=== PATIENT | female | born 1985 | race Two or more races ===

== ENCOUNTER 2025-02-18 11:53 | Inpatient (IN) ==
[2025-02-18] MEDS ORDERED: fentaNYL citrate PF 100 MCG/2 ML VIAL ONE (12:19)
[2025-02-18] MEDS ORDERED: PHENYLEPHRINE HCL 25 MG/250 ML NSS IV ONE (12:19)
[2025-02-18] MEDS ORDERED: MoRPHine SULFATE PF 1 MG/ML 10 ML AMP/VIAL ONE (12:19)
[2025-02-18] MEDS ORDERED: OXYTOCIN 10 UNITS/ML VIAL ONE (12:19)
[2025-02-18] MEDS ORDERED: ONDANSETRON INJ 2 MG/ML 2 ML VIAL ONE (12:19)
[2025-02-18] MEDS ORDERED: DEXAMETHASONE SOD INJ 4 MG/ML VIAL ONE (12:19)
[2025-02-18] MEDS ORDERED: LACTATED RINGER'S 1,000 ML IV PRN (13:04)
[2025-02-18] MEDS ORDERED: LIDOCAINE 1% LOCAL 20 ML VIAL INFIL PRN (13:04)
[2025-02-18] MEDS ORDERED: OXYTOCIN 30 UNITS/NSS 30 UNITS/500 ML BAG IV PRN (13:04)
--- NOTE | 2025-02-18 13:18 | History & Physical Report ---
Date of Service February 18, 2025 Assessment & Plan (1) Breech presentation: Present on Admission?: Yes (2) Delayed delivery after SROM (spontaneous rupture of membranes): Present on Admission?: Yes (3) AMA (advanced maternal age) multigravida 35+: Present on Admission?: Yes Plan Admit to L and D NPO/IV Fluids labs Ancef 2 gm IV, Zithromax 500 mg IV pre op ordered Glass to gravity Bicitra anesthesia and OR informed Consent obtained. Discuss the risks and benefits of the section Admission and Anticipated Discharge Date Admission Date: February 18, 2025 History of Present Illness Chief Complaint: pt 39 yr old IUP at 38 weeks 2 days came in from the office c/o ROM since last night. pt denies regular uterine contractions, vaginal bleeding etc. Reports good movement. prior C/S X 1, malpresentation. Primary Care Provider: Erika Cuevas DO Pt 39 yr old IUP at 38 weeks 2 days came in from the office c/o ROM since last night. pt denies regular uterine contractions, vaginal bleeding etc. Reports good movement. prior C/S X 1, malpresentation. Pt here for repeat low transverse section. Allergies Allergy/AdvReac Type Severity Reaction Status Date / Time benzonatate Allergy Unknown Rash Verified 02/18/25 13:15 Home Medications Medication Instructions Recorded Confirmed Type albuterol sulfate 0.63 mg/3 mL 0.63 mg inhalation QID PRN 07/01/23 12/28/24 History solution for nebulization fluticasone fur. 200 mcg-umeclid 1 inh inhalation DAILY 07/01/23 12/28/24 History 62.5 mcg-vilant 25 mcg inhalat.powder (Trelegy Ellipta) sertraline 25 mg tablet 150 mg PO DAILY 08/06/24 12/28/24 History albuterol sulfate 90 mcg/actuation 2 puff inhalation Q6H PRN 11/25/24 12/28/24 Rx aerosol inhaler shortness of breath or wheezing #8.5 grams azelastine 137 mcg (0.1 %) nasal 2 spray intranasal DAILY 90 days 11/25/24 12/28/24 Rx spray #3 ea dupilumab 300 mg/2 mL subcutaneous 300 mg (2 mL) subcut .COMPLEX #12 01/04/25 Rx pen injector (Dupixent) mL Past Med/Surg History Problem List (Updated 02/18/25 @ 13:15 by Arleen Shah MD) AMA (advanced maternal age) multigravida 35+ Delayed delivery after SROM (spontaneous rupture of membranes) Breech presentation Chronic frontal sinusitis Nasal polyps Social History Smoking Status: Never smoker Hx Alcohol Use: No Hx Substance Use: No Preferred Language: Sami Communication Ability: Effective Submarine Diver Required: No Beliefs That Will Affect Care: None marital status: Current Living Situation: Family Other Information That Helps Us Care for You: No Feels Safe at Home: Yes Safety Concerns: Feels Safe At This Time Review of Systems Review of Systems: All systems reviewed & are unremarkable except as noted in HPI & below Constitutional: as per Subjective / HPI Respiratory: as per Subjective / HPI Cardiovascular: as per Subjective / HPI Genitourinary: as per Subjective / HPI Physical Exam Constitutional: WD/WN, vitals as above Respiratory: normal respiratory effort, lungs clear to auscultation Cardiovascular: RRR, no murmur, no edema Gastrointestinal (Abdomen): normal bowel sounds, soft, nontender, no hepatosplenomegaly Skin: no rashes, warm and dry Psychiatric: A+Ox3, euthymic affect Genitourinary: no vaginal lesions, no adnexal mass Speculum/Bimanual Exam: + nulliparous OB Exam Abdomen: + heart tones (140s, Good variabilty, positive accelerations ) and + breech Manual OB Exam: + amniotic fluid clear Results & Data Results & Data Vital Signs (Past 12 Hours) Vital Signs Pulse Resp BP Pulse Ox 02/18/25 13:05 76 100 02/18/25 13:00 80 100 02/18/25 12:55 75 100 02/18/25 12:50 100 02/18/25 12:50 73 02/18/25 12:50 77 118/77 02/18/25 12:49 18 02/18/25 12:45 81 99 02/18/25 12:43 201 H 83 L 02/18/25 12:04 194 H 81 L Code Status & VTE Plan VTE Prophylaxis Plan VTE Prophylaxis will be ordered: No
[2025-02-18] MEDS ORDERED: NALOXONE HCL 0.4 MG/1 ML VIAL/CARP IV PRN (13:27)
[2025-02-18] MEDS ORDERED: SODIUM CHLORIDE 0.9% PF INJ 10 ML VIAL EPI PRN (13:27)
[2025-02-18] MEDS ORDERED: fentaNYL citrate PF 100 MCG/2 ML VIAL EPI STA (13:27)
[2025-02-18] MEDS ORDERED: ePHEDrine sulfate 50 MG/ML AMP IV PRN ×2 (13:27)
[2025-02-18] MEDS ORDERED: BUPIVACAINE 0.25% PF 30 ML VIAL EPI PRN (13:27)
[2025-02-18] MEDS ORDERED: LIDOCAINE 2% MPF LOCAL 5 ML VIAL EPI PRN (13:27)
[2025-02-18] MEDS ORDERED: BUPIVACAINE 0.25% PF 30 ML VIAL EPI STA (13:27)
[2025-02-18] MEDS ORDERED: fentANYL 2 MCG/ML BUPIVacaine 0.125%-NSS 100ML BAG EPI PRN (13:27)
[2025-02-18] MEDS ORDERED: NALBUPHINE HCL INJ 10 MG/ML AMP IV PRN (13:27)
[2025-02-18] MEDS ORDERED: ONDANSETRON INJ 2 MG/ML 2 ML VIAL IV PRN ×2 (13:27→15:04)
[2025-02-18] MEDS ORDERED: NALOXONE HCL 1 MG in SODIUM CHLORIDE 0.9% 1,000 ML IV PRN (13:27)
[2025-02-18] MEDS ORDERED: ROPIVACAINE 0.5% PF 5 MG/ML 20 ML VIAL EPI PRN (13:27)
[2025-02-18] MEDS ORDERED: fentaNYL citrate PF 100 MCG/2 ML VIAL EPI PRN (13:27)
[2025-02-18] MEDS ORDERED: LIDOCAINE 2%/EPINEPHRINE 1:200,000 20 ML PF EPI STA (13:27)
[2025-02-18] MEDS ORDERED: SODIUM CHLORIDE 0.9% PF INJ 10 ML VIAL EPI STA (13:27)
[2025-02-18] MEDS ORDERED: PROMETHAZINE 6.25 MG/50.25 ML BAG IV PRN (13:27)
[2025-02-18] MEDS ORDERED: diphenhydrAMINE 50 MG/ML VIAL IV PRN ×2 (13:27→15:04)
[2025-02-18] MEDS ORDERED: ATROPINE SULFATE 0.1 MG/ML 10ML SYR IV PRN (13:27)
--- NOTE | 2025-02-18 13:27 | Anesthesiology Consultation ---
Date of Service February 18, 2025 Assessment & Plan ASA ASA2 Proposed Anesthesia Anesthesia Type: Spinal Risk / Benefits Reviewed With: PT / POA / Parent / Guardian, Accepts Plan and Informed Consent Obtained History Surgery Operation Date: 02/18/25 12:45 Proposed Procedures p Section in LD - Arleen Shah MD Height/Weight Height: 5 ft 11 in Weight: 97.522 kg Allergies Allergy/AdvReac Type Severity Reaction Status Date / Time benzonatate Allergy Unknown Rash Verified 02/18/25 13:15 Medications Home Medications Medication Instructions Recorded Confirmed Last Taken albuterol sulfate 0.63 mg/3 mL 0.63 mg inhalation QID PRN 07/01/23 12/28/24 Unknown solution for nebulization fluticasone fur. 200 mcg-umeclid 1 inh inhalation DAILY 07/01/23 12/28/24 Unknown 62.5 mcg-vilant 25 mcg inhalat.powder (Trelegy Ellipta) sertraline 25 mg tablet 150 mg PO DAILY 08/06/24 12/28/24 Unknown albuterol sulfate 90 mcg/actuation 2 puff inhalation Q6H PRN 11/25/24 12/28/24 Unknown aerosol inhaler shortness of breath or wheezing #8.5 grams azelastine 137 mcg (0.1 %) nasal 2 spray intranasal DAILY 90 days 11/25/24 12/28/24 Unknown spray #3 ea dupilumab 300 mg/2 mL subcutaneous 300 mg (2 mL) subcut .COMPLEX #12 01/04/25 Unknown pen injector (Dupixent) mL Exercise / Class Metabolic Activity II 4-5 Yardwork/Stairs/Walk up hill Past Anesthesia History No Hx of Anesthesia Complications and No Family Hx of Anesthesia Complications History of PONV No Hx of PONV and No Hx of Motion Sickness Social History Smoking Status: Never smoker Hx Alcohol Use: No Hx Substance Use: No Review of Systems denies fever/cough/ colds/ chest pain/ SOB/ ALEXANDRA denies ALEXANDRA Physical Exam Vital Signs Last Vital Signs Pulse 80 02/18/25 13:25 Resp 18 02/18/25 12:49 BP 118/77 02/18/25 12:50 Pulse Ox 100 02/18/25 13:25 ENMT Mouth: no TMJ abnormality and no dentition abnormality Thyromental Distance: > or= 3.5 Finger Breadths Mallampati Class: II Neck neck extension not limited Respiratory normal respiratory effort; no respiratory distress Auscultation: lungs clear to auscultation bilaterally Cardiovascular Rate/Rhythm: regular rate and regular rhythm Neurologic moves all extremities Psychiatric Orientation: alert and oriented x 3
[2025-02-18 13:41] LABS: Hematocrit (blood only) 33.6 % (37.0-47.0); Hemoglobin 10.8 g/dl (12.0-16.0); Mean Corpuscular Hemoglobin 23.8 pg (25.0-34.0); Mean Corpuscular Hgb Conc 32.1 g/dL (32.0-36.0); Mean Corpuscular Volume 74.2 fL (80.0-100.0); Mean Platelet Volume 11.4 fL (9.4-12.4); Platelet Count 150 K/uL (130-400); RDW Coefficient of Variation 15.5 % (11.5-14.5); RDW Standard Deviation 41.1 fL (36.4-46.3); Red Blood Count 4.53 M/uL (4.20-5.40); White Blood Count 5.65 K/ul (4.8-10.8)
[2025-02-18] MEDS: CITRIC ACID/SODIUM CITRATE 15 ML UDC PO ONE (13:50)
[2025-02-18] MEDS: AZITHROMYCIN 500 MG/255 ML BAG IV ONE (13:50)
[2025-02-18] MEDS: ceFAZolin 2000MG 2,000 MG/15 ML SYR IV ONE (13:51)
[2025-02-18] MEDS ORDERED: CALCIUM CARBONATE 500 MG CHEWABLE TAB PO PRN (15:04)
[2025-02-18] MEDS ORDERED: MAGNESIUM HYDROXIDE SUSP 30 ML UDC PO PRN (15:04)
[2025-02-18] MEDS ORDERED: HYDROmorphone INJ 0.5 MG/0.5 ML SYR IV PRN (15:04)
[2025-02-18] MEDS ORDERED: oxyCODONE HCL IR 5 MG TAB (IMMEDIATE RELEASE) PO PRN (15:04)
[2025-02-18] MEDS ORDERED: HYDROCORTISONE ACETATE 25 MG SUPP PR PRN (15:04)
[2025-02-18] MEDS ORDERED: SENNA 8.6 MG TAB PO PRN (15:04)
[2025-02-18] MEDS ORDERED: DIPHTHER/TETAN/PERTUS Vaccine (Tdap, Adol/Adult) 0.5mL IM ONE (15:04)
[2025-02-18] MEDS ORDERED: PROMETHAZINE 12.5 MG/50.5 ML BAG IV PRN (15:04)
[2025-02-18] MEDS ORDERED: diphenhydrAMINE Capsule 25 MG CAP PO PRN (15:04)
[2025-02-18] MEDS ORDERED: BENZOCAINE 20% SPRY 85 APPLN/85 GM CAN EXT PRN (15:04)
--- NOTE | 2025-02-18 15:09 | Post Operative Brief Note ---
Immediate Post Op Note Date of Surgery February 18, 2025 Pre & Post Diagnosis Operation Date: 02/18/25 12:45 Pre-Op Diagnosis: 1. Rupture of membrane 2. Term 3. Labor 4. Repeat C/S Post-Op Diagnosis: Same as preoperative I identified the patient and participated in the time-out.: Yes Procedure Operation Date: 02/18/25 12:45 Actual Procedures p Section in LD(Bilateral) - Arleen Shah MD Surgeon Arleen Shah MD Master [employer] sudheer alexandre RN for retraction Estimated Blood Loss 621 Findings Consistent with Post-Op Diagnosis (vertex, scar tissue ) Drains Glass Catheter Complications none Disposition Accompanied Patient To Recovery: No Disposition: Recovery Room
--- NOTE | 2025-02-18 15:10 | Operative Report ---
Post Operative Report Pre & Post Diagnosis Operation Date: 02/18/25 12:45 Pre-Op Diagnosis: 1. Rupture of membrane 2. Term 3. Labor 4. Repeat C/S Post-Op Diagnosis: Same as preoperative I identified the patient and participated in the time-out.: Yes Procedure Operation Date: 02/18/25 12:45 Actual Procedures repeat low trasnverse Section Arleen Shah MD Description of Procedure Patient was taken to operating room where a spinal anesthesia was given without difficulty. She was placed in dorsal supine position with a leftward tilt. She was prepared and draped in usual sterile fashion. A flannelsteil skin incision was made and carried through to the underlying layer of fascia with the Bovie. Fascia was incised in the midline and incision was extended laterally with the help of Villanueva scissors. Then the upper aspect of the fascial incision was grasped with 2 Khang clamps elevated the underlying rectus muscles were dissected off sharply with Villanueva scissors. Same thing was done on the lower incision. the peritoneum was entered during dissection of the fascia from muscles. there was no adhesion nor loops of bowels under the fascia. Peritoneal incision was extended superior and inferiorly with good visualization of the bladder. The bladder blade was inserted. Vesicouterine peritoneum was identified, grasped with pickups and entered sharply with Metzenbaum scissors, bladder flap was created digitally and bladder blade was reinserted. Uterus was incised in transverse fashion, incision was extended laterally, membranes were ruptured and minimal clear fluid was obtained. Baby's head was delivered with some difficulty, used vacuum for the delivery of the head, vacuum removed , nuchal cord x1 around the neck. reduced, followed by shoulders and body with minimal traction without faculty. Mouth and nose were suctioned there was dried on the field . The cord was clamped times and cut at 1 minute delay and then the was handed off to the pediatric team. Then the placenta was delivered manually as intact and complete. Uterus was externalized and cleared of all clots and debris's. Uterine incision was repaired with 0 Vicryl in a running locked fashion, second imbricating layer was placed with the same suture in running locked fashion. there were some oozing on the medial superior of the incision, those were repaired with 0 Vicryl in running fashion with multiple sutures. It was hemostatic. Incision was checked to be hemostatic again. Uterus was returned to the abdomen, The parietal peritoneum was reapproximated with 2-0 Vicryl in a running fashion. decision was made not to close the rectus muscles to avoid risk of bleeding. In a running fashion. Subcuticular fat tissue was brought together with 2-0 Vicryl in a running fashion, skin was closed with 3-0 Monocryl on a Ernst needle in a subcuticular cuticular fashion. Dermabond applied and pressure drssing placed. The mom and baby tolerated procedure well. Sponge needle instrument count was correct x3. she was given 2 g of cefazolin before surgery, 500 mg Zithromax IV No complications happened, I performed during whole procedure. Surgeon Arleen Shah MD Abalone Fisherman sudheer alexandre RN for retraction Quantitative Blood Loss (QBL) 621 cc Findings Consistent with Post-Op Diagnosis (vertex, scar tissue ) Specimens none Complications none Disposition Accompanied Patient To Recovery: No Disposition: Recovery Room Description of Procedure see op report I attest to the content of the Intraoperative Record and any orders documented therein. Any exceptions are noted below.
[2025-02-18] MEDS ORDERED: OXYTOCIN 30 UNITS/NSS 30 UNITS/500 ML BAG IV SCH (15:15)
[2025-02-18] MEDS ORDERED: OXYTOCIN 20 UNITS/1002ML LR IV ONE (15:26)
--- OUTSIDE RECORDS SUMMARY | 2025-02-18 15:34 | External Medical Summary | Summary of Care ---
Author Name Unknown Organization [facility] Address [address] [place] [address] Phone [phone] Care Team Providers Care Plumber Assistant Name Role Phone Erika Cuevas DO Primary Care Provider [phone] Reason for Visit * Reason Comments Return Visit Encounter Details Date Type Department Care Team (Late st Contact Info) Description 02/07/2025 1:30 PM EDT Office Visit Gynecology/Obstetric s [facility] [address] [place] [address] Mariah Del Cid CRNP [address] [place] [address] Multigravida of advanced maternal age in third trimester*; Maternal asthma complicating ; H/O section; History of depression, currently ; High-risk in third trimester; Antepartum anemia complicating ; Breech presentation, single or unspecified fetus Allergies Active Allergy Reactions Criticality Noted Date Comments Benzonatate Hives 04/25/2023 documented as of this encounter (statuses as of 02/07/2025) Medications Sertraline HCl 50 MG Oral Tablet (Zoloft) Take 3 Tablets by mouth in the morning. 3 Active Albuterol Sulfate HFA 108 (90 Base) MCG/ACT Inhalation Aerosol Solution inhale 2 puffs by mouth and INTO THE LUNGS every 4 hours as directed 18 g 3 Active Albuterol Sulfate (2.5 MG/3ML) 0.083% Inhalation Nebulization Solution (Proventil)Indic ations:Moderate persistent asthma with exacerbation Inhale 1 Vial via nebulizer every 4 hours as needed for Wheezing or Shortness of Breath for up to 60 doses. 3 mL 1 3 Active Oxymetazoline HCl 0.05 % Nasal Solution Administer 2 Sprays into each nostril 2 times a day as needed for Congestion (for congestion). Do not use for more than three days. 20 mL 3 Active Albuterol Sulfate (2.5 MG/3ML) 0.083% Inhalation Nebulization Solution (Proventil) Inhale 1 Vial via nebulizer every 6 hours as needed for Wheezing. 360 mL 1 4 Active Dupixent 300 MG/2ML Subcutaneous Solution Pen-injector 4 Active Trelegy Ellipta 200-62.5-25 MCG/ACT Aerosol Powder Breath Activated Inhale 1 Puff by mouth daily. 180 Blister Dosing Unit 2 4 Active Vitamin 27-0.8 MG Oral Tablet Take by mouth. Activ e Azelastine HCl 137 MCG/SPRAY Nasal Solution INSTILL 2 SPRAYS INTRANASALLY DAILY FOR 90 DAYS 4 Active Iron 325 (65 Fe) MG Oral Tablet Take by mouth. Active documented as of this encounter (statuses as of 02/07/2025) Active Problems Problem Noted Date Diagnosed Date presentation, breech 01/19/2025 Overview (01/19/2025): At 34 wks Antepartum anemia complicating 025 High-risk 11/10/2024 History of depression, currently preg nant 08/30/2024 Overview (08/31/2024): History of depression - was started on Zoloft for same Currently managed on Zoloft Follows with Psychiatrist Reports a stable mood in . Denies any suicidal or homicidal ideation. Reports she has a good support system at home. Assessment & Plan (08/31/2024 12:14 PM EST): CONSIDERATIONS: Untreated maternal anxiety and/or depression may be associated with an increased risk of multiple poor obstetrical outcomes including miscarriages, low weight, and delivery. Women with a history of anxiety or depression are at risk for recurrence both during and/or the period. Studies of first-trimester SSRI exposure do not demonstrate consistent data to support an increased risk for structural malformations. Anti-anxiety or depression medications have been associated with transient effects (withdrawal syndrome). RECOMMENDATIONS: Mental illness can and should be treated during when the benefits of treatment outweigh potential risks. Referral to behavioral health services as clinically indicated. AMA (advanced maternal age) multigravida 35+ Overview (08/31/2024): Age 39YO at [facility] Deferred genetic screening/testing at this time. Assessment & Plan (10/25/2024 1:50 PM EST): I reviewed the ultrasound with her. The anatomy that was visualized appears unremarkable and the biometry is appropriate for the gestational age. The amniotic fluid volume is subjectively normal and the fetus is in the vertex presentation. At this point, there is clinically no indication for return. Assessment & Plan (08/31/2024 12:13 PM EST): CONSIDERATIONS: We reviewed the most pertinent aspects of the following: Advanced maternal age (AMA) refers to a woman with a guerrero who will be at the age of 35 or older at the estimated time of delivery and may be associated with increased morbidity. After discussion of the genetic screening/testing options, the patient declines genetic screening and testing. In addition to the risk of chromosomal abnormalities, there is an increased risk of congenital/structural anomalies. RECOMMENDATIONS: Recommend MFM anatomy ultrasound at 19-20 weeks gestation. Maternal asthma complicating Overview (08/31/2024): Asthma - diagnosed in 2021 Follows with [facility] - Dr. Arrieta - who is aware of Managed on Dupixent (every other week), Trelegy daily, albuterol inhaler as needed, and azelastine nasal spray daily. Patient reports symptoms are well controlled with current medication regimen. She previously had nasal polyp surgery in past. 11/19/24: last albuterol use >1 month ago Denies intubations due to asthma Assessment & Plan (08/30/2024 8:29 PM EST): CONSIDERATIONS: Asthma symptoms may improve, worsen or remain unchanged in severity in . Asthma is generally managed the same in as in the non- patient, as asthma-control medications are considered safe in . If asthma is well-controlled with medications prior to , it is recommended to continue the same medication regimen during . A patient should seek medical care immediately if an asthma flare does not respond to therapy. Mild and well-controlled moderate asthma can be associated with excellent maternal and outcomes. Severe and poorly controlled asthma may be associated with increased morbidity and mortality. Asthma management includes monitoring of lung function with pulmonary function testing (when indicated), avoidance of triggers (such as tobacco smoke, mold, dust mite exposure, animal dander and cockroaches), and a step-care approach to pharmacologic therapy based on the severity of the patient's asthma. RECOMMENDATIONS: Inhaled corticosteroids are the mainstay of therapy for all patients except those with intermittent asthma. If patients are routinely requiring rescue inhaler (such as albuterol, Ventolin, ProAir, Atrovent, or Proventil) use more than twice weekly, we recommend adding a low-dose inhaled corticosteroid. [Pulmicort (budesonide) is preferred to use in .] If patients are routinely requiring rescue inhaler use daily, we recommend adding a combined low-dose inhaled corticosteroid/long-acting beta-agonist [such as Advair (fluticasone/salmeterol) or Symbicort (budesonide/formoterol)] or a medium dose inhaled corticosteroid. Patient should discuss these treatment options with her primary OB provider or PCP. Typically, patients do not need stress dose steroids as long as they continue their usual dose perioperatively (or during labor) and do not have primary renal failure or other problems with the pituitary axis. Medications such as prostaglandin F2a (including Hemabate), ergonovine, and indomethacin (in patients who are aspirin allergic) should be used with caution. Patients with moderate or severe persistent asthma should have Maternal- Medicine ultrasound for anatomy at 19-20 weeks. surveillance with growth ultrasounds and non-stress tests should be considered starting at 32 weeks. H/O section 08/10/2024 Overview (08/31/2024): History of section x 1 for failure to progress Plan: patient desires ERCD Chronic obstructive pulmonary disease 12/01/2023 Estimated Date of Delivery Comme nts Yes 03/02/2025 Based on last me nstrual period of 05/26/2024 (Exact Date) documented as of this encounter (statuses as of 02/07/2025) Resolved Problems Problem Noted Date Diagnosed Date Resolved Date Malpresentation of fetus 01/19/202506/2025 documented as of this encounter (statuses as of 02/07/2025) Social History Tobacco Use Types Packs/Day Years Used Date Smoking Tobacco: Never Passive Smoke Exposure: Never Smokeless Tobacco: Never Alcohol Use Standard Drinks/Week Comments Not Currently 0 (1 standard drink = 0.6 oz pur e alcohol) denies in Hunger Vital Sign Answer Date Recorded Within the past 12 months, y ou worried that your food would run out before you got the money to buy more. Never true 12/15/19 25 Within the past 12 months, t he food you bought just didn't last and you didn't have money to get more. Never true 12/14/2024 [place] Depression Scale Answer Date Recorded [place] Depression Scale Total 4 01/19/2025 The thought of harming myself has occurred to me . Never 01/19/2025 Childcare Answer Date Recorded Do you feel overwhelmed with taking care of a child, family member or friend? No 12/14/2024 Does your family need help f inding childcare? (Household - for ages 0-17 years) Not on file 12/14/2024 Clothing Answer Date Recorded Have you been unable to get clothing when it was really needed? No 12/14/2024 Is your family able to get c lothes or diapers when needed? (Household - for ages 0-17 years) Not on file 12/14/2024 Personal Safety Answer Date Recorded Do you feel unsafe or have concerns for your saf ety? No 12/14/2024 Do you have concerns for you r family's safety? (Household - for ages 0-17 years) Not on file 12/14/2024 Utilities Answer Date Recorded Do you have trouble paying y our heating, water, or electric bill? No 12/14/2024 Is your family able to pay t he heat, water, or electric bill? (Household - for ages 0-17 years) Not on file 12/14/2024 Does your family have access to good internet? (Household - for ages 0-17 years) Not on file 12/14/2024 Employment Status Answer Date Recorded Are you unemployed or without regular income? No 12/14/2024 Does the household have a [facility] source [facility] income? (Household - for ages 0-17 years) Not on file 12/14/2024 Social Connections Answer Date Recorded How often do you feel lonely or isolated from th ose around you? Rarely 12/14/2024 Financial Resource Strain Answer Date R ecorded Do you have any trouble payi ng for your medications, or do you think you might in the future? No 12/14/2024 Does your family have troubl e paying for medicine? (Household - for ages 0-17 years) Not on file 12/14/2024 Transportation Needs Answer Date Record ed Do you have trouble getting a ride to medical visits or work? (Adult - for ages 18 years and over) Not on file 12/14/2024 Does your family have a hard time getting a ride to doctors visits? (Household - for ages 0-17 years) Not on file 12/14/2024 Has lack of transportation k ept you from medical appointments, meetings, work, or from getting things needed for daily living? Check all that apply. No 12/14/2024 Do you (or your family) have trouble finding or paying for a ride (transportation)? (Household - for ages 0-17 years) Not on file 12/14/2024 Housing Stability Answer Date Recorded Do you currently live in a s helter or have no steady place to sleep at night? No 12/14/2024 Do you think you are at risk of becoming homeless? (Adult - for ages 18 years and over) Not on file 12/14/2024 Does your family worry about paying for your home or becoming homeless? (Household - for ages 0-17 years) Not on file 0 12/14/2024 Are you homeless or worried that you might be in the future? No 12/14/2024 Are you (or your family) andre eless or worried that you might be in the future? (Household - for ages 0-17 years) Not on file Food Insecurity Answer Date Recorded Do you need food for this week? No 08/21/2023 Are you able to get enough f ood for your family? (Household - for ages 0-17 years) Not on file 08/21/2023 Does your family need food t his week? (Household - for ages 0-17 years) Not on file 08/21/2023 Do you always have enough fo od for your family? (Household - for ages 0-17 years) Not on file 08/21/2023 Food Insecurity Answer Date Recorded Within the past 12 months, y ou worried that your food would run out before you got the money to buy more. Never true 12/15/19 25 Within the past 12 months, t he food you bought just didn't last and you didn't have money to get more. Never true 12/14/2024 Do you need food for this week? 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 Good FM. No contractions, bleeding, or LOF. C/s scheduled. Manager Green Documentation Provider requested regulatory submissions associate. Name of regulatory submissions associate: Yenni GBS done. KENDALL Harvey * Yenni Knight CMA - 02/07/2025 1:36 PM EDT 36w5d GBS swab today Dry eyes recently documented in this encounter Plan of Treatment Upcoming Encounters Date Type Department Care Team (Late st Contact Info) Description 02/18/2025 8:45 AM EDT Office Visit Gynecology/Obstetrics [facility] [address] [place] [address] Mariah Del Cid CRNP [address] [place] [address] 03/02/2025 10:30 AM EDT Office Visit [facility]cology[facility] [address] [place] [address] Zoraida Vanessa CRNP [address] [place] [address] Pending Results Name Type Priority Associated Diagnoses Date /Time GROUP B STREP CULTURE/PCR Lab Routine Multigravida of advanced maternal age in third trimester 02/07/2025 1:57 PM EDT Scheduled Orders Name Type Priority Associated Diagnoses Orde r Schedule GROUP B STREP CULTURE/PCR Lab Routine Multigravida of advanced maternal age in third trimester Expected: 02/07/2025, Expires: 02/07/2026 Health Maintenance Due Date Last Done Comments Depression Screening 1998 Alpha-1 Antitrypsin 2004 O2 ASSESSMENT COMPLETED IN P AST YEAR FOR COPD 2004 DTap/Tdap Vaccines (1 - Tdap) 2005 Hepatitis B Vaccine (1 of 3 - 19+ 3-dose series) 2005 Pneumococcal Vaccine: Pediat rics (0 to 5 Years) and At-Risk Patients (6 to 18 Years and 19+ Years) (1 of 2 - PCV) 2005 *[address] FOR COPD EVER 12/03/2023 COVID-19 Vaccine (1 - 2023-2 5 season) 2024 Influenza Vaccine (FLU shot) (Season Ended) 2025 Diabetes Screening 05/30/2026 05/30/2023 Pap Smear 08/22/2026 08/22/2023 Cervical Cancer Screening 08/22/2028 HPV/Co-Test 08/22/2028 08/22/2023 HPV (Gardasil) Vaccine Aged Out No lo nger eligible based on patient's age to complete this topic MENINGOCOCCAL (MENACTRA/MENVEO) Aged Out No longer eligible based on patient's age to complete this topic Meningitis B Vaccine (Bexsero/Trumemba) Aged Out No longer eligible b ased on patient's age to complete this topic documented as of this encounter Goals Goal Patient Goal Type Associated Problems Recent Progress Patient-Stated? Author Reminders Care Plan OB Reminders No Mychart, Provider documented as of this encounter Medical Devices Not on filedocumented as of this encounter Visit Diagnoses Diagnosis Supervision of high risk in second trimester- Primary Unspecified high-risk 13 weeks gestation of state, incidental Multigravida of advanced maternal age in second trimester Maternal asthma complicating Other current maternal conditions classifiable elsewhere, complicating , childbirth, or the puerperium, unspecified as to episode of care History of depression, currently with other poor obstetric history Multigravida of advanced maternal age in second trimester- Primary Maternal asthma complicating Other current maternal conditions classifiable elsewhere, complicating , childbirth, or the puerperium, unspecified as to episode of care Multigravida of advanced maternal age in third trimester- Primary Maternal asthma complicating Other current maternal conditions classifiable elsewhere, complicating , childbirth, or the puerperium, unspecified as to episode of care H/O section Other postprocedural status History of depression, currently with other poor obstetric history High-risk in third trimester Antepartum anemia complicating Anemia, antepartum Breech presentation, single or unspecified fetus documented in this encounter Additional Health Concerns Active Problems Noted Date Diagnosed Date OB Reminders 11/04/2024 documented as of this encounter Care Teams Plumber Assistant Relationship Specialty Start Date End Date Erika Cuevas DO [address] [place] [address] PCP - General Family Medicine 05/29/23 documented as of this encounter
--- OUTSIDE RECORDS SUMMARY | 2025-02-18 15:34 | External Medical Summary ---
Author Name Unknown Address Unknown Organization K[facility] [address] [place] [address] Laboratory Report Ordering Provider Test Date Status BARRERA TERESA 02/07/2025 13:57:10 Final Observation Date Value Abnormality Reference (Units ) Status Streptococcus agalactiae DNA [Presence] in Specimen by LIBRA with probe detection 02/07/2025 13:57:10 Negative Negative Final No Group B Streptococcus det ected by culture-enhanced PCR (amplified probe). GBS GBSCT - [facility] 02/07/2025 13:57:10 0.0 Final GBS SPCCT - [facility] 02/07/2025 13:57:10 31.4 Final Performing Location [facility] [place] - [facility] [address] [place] [address]
--- OUTSIDE RECORDS SUMMARY | 2025-02-18 15:34 | External Medical Summary | Summary of Care ---
Author Name Unknown Organization [facility] Address [address] [place] [address] Phone [phone] Care Team Providers Care Bunk Assembler Name Role Phone Erika Cuevas DO Primary Care Provider [phone] Reason for Visit * Reason Comments Return Visit Encounter Details Date Type Department Care Team (Late st Contact Info) Description 02/02/2025 3:00 PM EDT Office Visit [facility]necology[facility] [address] [place] [address] Samuel Feliz MD [address] [place] [address] Multigravida of advanced maternal age in third trimester*; Maternal asthma complicating ; H/O section; History of depression, currently ; High-risk in third trimester; Antepartum anemia complicating ; Breech presentation, single or unspecified fetus Allergies Active Allergy Reactions Criticality Noted Date Comments Benzonatate Hives 04/25/2023 documented as of this encounter (statuses as of 02/03/2025) Medications Sertraline HCl 50 MG Oral Tablet [...] as of this encounter (statuses as of 02/03/2025) Active Problems Problem Noted Date Diagnosed Date [...] Asthma - diagnosed in 2021 Follows with [facility] Registered Nurse - Dr. Arrieta - who is aware of Managed on Dupixent (every other week), Trelegy daily, albuterol inhaler as needed, and azelastine nasal spray daily. Patient reports symptoms are well controlled with current medication regimen. She previously had nasal polyp surgery in past. 08/31/24: last albuterol use >1 month ago Denies [...] as of this encounter (statuses as of 02/03/2025) Resolved Problems Problem Noted Date Diagnosed Date Resolved Date Malpresentation of fetus 01/19/202506/2025 documented as of this encounter (statuses as of 02/03/2025) Social History Tobacco Use Types Packs/Day Years [...] money to get more. Never true 12/14/2024 [place] Depression Scale Answer Date Recorded [place] Depression Scale Total 4 01/19/2025 The thought [...] No 12/14/2024 Does the household have a [facility] source of income? (Household - for ages [...] Sign Reading Time Taken Comments Blood Pressure 102/60 02/02/2025 3:01 PM EDT Pulse - - Temperature - - Respiratory Rate - - Oxygen Saturation - - Inhaled Oxygen Concentration - - Weight 99.8 kg (220 lb) 02/02/2025 3:01 PM EDT Height 180.3 cm (5' 11") 02/02/2025 3:01 PM EDT Body Mass Index 30.68 02/02/2025 3:01 PM EDT documented in this encounter Progress Notes * Samuel Feliz MD - 02/02/2025 3:18 PM EDT Pt doing well No complaints Breech presentation by rob prior c/sc Preop appt today H&p done * Barbara Sanchez LPN - 02/02/2025 3:01 PM EDT 36w0d Pt is here for pre-op for repeat csection documented in this encounter H&P Notes * Samuel Feliz MD - 02/02/2025 3:19 PM EDT [facility] [address] [facility] [address] Appt line [phone] Jeannie Chang is a 39 year old year old year old at 36w0d Patient is . Estimated Date of Delivery: 03/02/25 Prior c/sec . Wishes to have repeat c/sec Breech by lerudi maneuver Patient is here for Preop OB History Para Term AB Living 3 1 1 0 1 1 SAB IAB Ectopic Multiple Live Births 1 0 0 0 1 # Outcome Date GA Lbr Palomo/2nd Weight Sex Type Anes PTL Lv 3 Current 2 Term 04/22/20 41w0d 3.629 kg (8 lb) F CS-Unspec N VICKY Comments: FOB#1; denies complications; C/S for FTP past 9cm; baby in NICU x 5 days (meconium aspiration) Complications: Failure to Progress in Second Stage 1 SAB 06/2018 7w0d Comments: medical treatment Obstetric Comments 2023 FOB#1 Joey 39YO, history of hyperlipidemia, he has no children outside relationship Date Labor Sex Delivery Anesth Del Comments GA Length Weight Type Site Junior Administrative Assistant History: Menstrual Index:// days. Denies h/o STDs and abnormal Paps. Her past medical/surgical histories and current medications are recorded in the electronic record. Past Surgical History: Procedure Laterality Date CA DELIVERY ONLY 2019 CA EXCISION NASAL POLYP SIMPLE 07/2022 Family History Problem Relation Name Age of Onset Hypertension Mother Hypertension Father No Known Problems Sister No Known Problems Sister No Known Problems Brother No Known Problems Brother No Known Problems Brother No Known Problems Brother Autism spectrum disorder Brother No Known Problems Daughter History Social History Socioeconomic History Marital status: Spouse name: Joey Number of children: Not on file Years of education: Not on file Highest education level: Not on file Occupational History Occupation: instructor Comment: [employer] Tobacco Use Smoking status: Never Passive exposure: Never Smokeless tobacco: Never Vaping Use Vaping status: Never Used Substance and Sexual Activity Alcohol use: Not Currently Comment: denies in Drug use: Not Currently Sexual activity: Yes Partners: Male Other Topics Concern Not on file Social History Narrative Not on file Social Needs Financial Resource Strain: Low Risk (12/14/2024) Financial Resource Strain Do you have any trouble paying for your medications, or do you think you might in the future? (Adult - for ages 18 years and over): No Does your family have trouble paying for medicine? (Household - for ages 0-17 years): Not on file Food Insecurity: No Food Insecurity (12/14/2024) Food Insecurity Worried About Running Out of Food in the Last Year: Never true Ran Out of Food in the Last Year: Never true Do you need food for this week? (Adult - for ages 18 years and over): No Transportation Needs: No Transportation Needs (12/14/2024) Transportation Needs Do you have trouble getting a ride to medical visits or work? (Adult - for ages 18 years and over):Not on file Does your family have a hard time getting a ride to doctors’ visits? (Household - for ages 0-17 years): Not on file Has lack of transportation kept you from medical appointments, meetings, work, or from getting things needed for daily living? Check all that apply. (Adult - for ages 18 years and over): No Do you (or your family) have trouble finding or paying for a ride (transportation)? (Household - for ages 0-17 years): Not on file Social Connections: Socially Integrated (12/14/2024) Social Connections How often do you feel lonely or isolated from those around you? (Adult - for ages 18 years and over): Rarely Housing Stability: Low Risk (12/14/2024) Housing Stability Do you currently live in a correction or have no steady place to sleep at night? (Adult - for ages 18 years and over): No Do you think you are at risk of becoming homeless? (Adult - for ages 18 years and over): Not on file Does your family worry about paying for your home or becoming homeless? (Household - for ages 0-17 years): Not on file Are you homeless or worried that you might be in the future? (Adult - for ages 18 years and over): No Are you (or your family) homeless or worried that you might be in the future? (Household - for ages0-17 years): Not on file @[employer]S@ Physical Exam: BP 102/60 | Ht 1.803 m (5' 11") | Wt 99.8 kg (220 lb) | LMP 05/26/2024 (Exact Date) | BMI 30.68 kg/m² | BSA 2.24 m² CV: S1, S2. Regular rate and Rhythm Lungs: Clear to auscultation bilaterally. Abdomen: Soft with a gravid uterus and no palpable contractions. Fundal Height: 36 cms heart rate: 140/mi Extremities: Soft non tender calves bilaterally. A/P: 39 year old year old Prior c/sec Wishes to have repeat c/sec Breech by rob today We have discussed the risk alternatives and complications of surgery including more surgery to correct complication,risk of anesthesia,infection,damage to internal organs and . We have also discussed the possibility that pt's present situation may not change. Pt is aware and wishes to proceed to surgery. Consent is signed Samuel Feliz MD 02/02/2025 3:19 PM documented in this encounter Plan of Treatment Upcoming Encounters Date Type Department Care Team (Late st Contact Info) Description 02/07/2025 1:30 PM EDT Office Visit Gynecology/[facility]st[facility]s [facility] [address] [place] [address] Mariah Del Cid CRNP [address] [place] [address] 02/18/2025 8:45 AM EDT Office Visit Gynecology/Obstetrics [facility] [address] [place] [address] Mariah Del Cid CRNP [address] [place] [address] 03/02/2025 10:30 AM EDT Office Visit [facility]necology/[facility]st[facility] [address] [place] [address] Zoraida Vanessa CRNP [address] [place] [address] Health Maintenance Due Date Last Done Comments [...] documented as of this encounter Care Teams Bunk Assembler Relationship Specialty Start Date End Date Erika Cuevas DO [address] [place] [address] PCP - General Family Medicine 05/29/23 documented as of this encounter
--- OUTSIDE RECORDS SUMMARY | 2025-02-18 15:34 | External Medical Summary | Summary of Care ---
Author Name Unknown Organization [facility] Address [address] [facility] [place] [address] Phone [phone] Care Team Providers Care Aerial Photographer Name Role Phone Erika Cuevas DO Primary Care Provider [phone] Reason for Visit * Reason Comments Return Visit Encounter Details Date Type Department Care Team (Late st Contact Info) Description 12/31/2024 1:30 PM EDT Office Visit [facility]necology[facility] [address] [place] [address] Mariah Del Cid CRNP [address] [place] [address] Multigravida of advanced maternal age in third trimester*; Maternal asthma complicating ; H/O section; History of depression, currently ; High-risk in third trimester; Antepartum anemia complicating Allergies Active Allergy Reactions Criticality Noted Date Comments Benzonatate Hives 04/25/2023 documented as of this encounter (statuses as of 12/31/2024) Medications Sertraline HCl 50 MG Oral Tablet [...] than three days. 20 mL 3 Active Additional Information Patient not taking.Reported on 12/31/2024 Albuterol Sulfate (2.5 MG/3ML) 0.083% Inhalation Nebulization [...] as of this encounter (statuses as of 12/31/2024) Active Problems Problem Noted Date Diagnosed Date Antepartum anemia complicating 025 High-risk 11/10/2024 History [...] Asthma - diagnosed in 2021 Follows with [facility] Overlay Operator - Dr. Arrieta - who is aware [...] as of this encounter (statuses as of 12/31/2024) Social History Tobacco Use Types Packs/Day Years [...] money to get more. Never true 12/14/2024 [place] Depression Scale Answer Date Recorded [place] Depression Scale Total 2 08/10/2024 The thought of harming myself has occurred to me . Never 08/10/2024 Childcare Answer Date Recorded Do you feel [...] No 12/14/2024 Does the household have a re gular source of income? (Household - for ages [...] Sign Reading Time Taken Comments Blood Pressure 112/68 12/31/2024 1:27 PM EDT Pulse - - Temperature - - Respiratory Rate - - Oxygen Saturation - - Inhaled Oxygen Concentration - - Weight 98.3 kg (216 lb 12.8 oz) 12/31/2024 1:27 PM EDT Height - - Body Mass Index 30.24 11/10/2024 1:30 PM EST documented in this encounter Progress Notes * Mariah Del Cid CRNP - 12/31/2024 1:58 PM EDT 31w2d No concerns. Baby is active. No contractions or bleeding. Taking iron. Will recheck CBC before next visit. TDAP next visit. KENDALL Harvey * Yenni Knight CMA - 12/31/2024 1:27 PM EDT 31w2d documented in this encounter Plan of Treatment Scheduled Orders Name Type Priority Associated Diagnoses Orde r Schedule CBC Lab Routine Antepartum anemia complicating Expected: 12/31/2024 (Approximate), Expires: 12/31/2025 Health Maintenance Due Date Last Done Comments [...] CT FOR COPD EVER 12/03/2023 COVID-19 Vaccine ( - 2023-2 5 season) 2024 Influenza Vaccine (FLU shot) (#1) 2024 Diabetes Screening 05/30/2026 05/30/2023 Pap Smear 08/22/2026 [...] third trimester Antepartum anemia complicating Anemia, antepartum documented in this encounter Additional Health Concerns Active Problems Noted Date Diagnosed Date OB Reminders 11/04/2024 documented as of this encounter Care Teams Aerial Photographer Relationship Specialty Start Date End Date Erika Cuevas DO [address] [place] [address] PCP - General Family Medicine 05/29/23 documented as of this encounter
--- OUTSIDE RECORDS SUMMARY | 2025-02-18 15:34 | External Medical Summary | Summary of Care ---
Author Name Unknown Organization [facility] Address [address] [facility] [place] [address] Phone [phone] Care Team Providers Care Room Service Associate Name Role Phone Erika Cuevas DO Primary Care Provider [phone] Reason for Visit * Reason Comments Return Visit Encounter Details Date Type Department Care Team (Late st Contact Info) Description 01/19/2025 1:00 PM EDT Office Visit Gynecology/[facility] [address] [place] [address] Zoraida Vanessa CRNP [address] [place] [address] High-risk in third trimester*; Multigravida of advanced maternal age in third trimester; Maternal asthma complicating ; H/O section; History of depression, currently ; Antepartum anemia complicating ; Breech presentation, single or unspecified fetus Allergies Active Allergy Reactions Criticality Noted Date Comments Benzonatate Hives 04/25/2023 documented as of this encounter (statuses as of 01/19/2025) Medications Sertraline HCl 50 MG Oral Tablet [...] as of this encounter (statuses as of 01/19/2025) Active Problems Problem Noted Date Diagnosed Date [...] Asthma - diagnosed in 2021 Follows with [facility] Hull Builder - Dr. Arrieta - who is aware [...] as of this encounter (statuses as of 01/19/2025) Resolved Problems Problem Noted Date Diagnosed Date Resolved Date Malpresentation of fetus 01/19/202506/2025 documented as of this encounter (statuses as of 01/19/2025) Social History Tobacco Use Types Packs/Day Years [...] money to get more. Never true 12/14/2024 [place] Depression Scale Answer Date Recorded [place] Depression Scale Total 4 01/19/2025 The thought [...] No 12/14/2024 Does the household have a [facility] source of income? (Household - for ages [...] Reading Time Taken Comments Blood Pressure 102/60 01/19/2025 1:01 PM EDT Pulse - - Temperature - - Respiratory Rate - - Oxygen Saturation - - Inhaled Oxygen Concentration - - Weight 97.5 kg (215 lb) 01/19/2025 1:01 PM EDT Height - - Body Mass Index 29.99 11/10/2024 1:30 PM EST documented in this encounter Progress Notes * Zoraida Vanessa CRNP - 01/19/2025 1:27 PM EDT 34w0d Good movement. No regular ctx or LOF/bleeding. No thoughts on contraception yet. Baby is breech by POCUS. FHR 160-170, gross movement noted throughout scan. NST reactive with normal baseline HR. Labor instructions provided. Discussed GBS swab at next visit. Return in 1 week. KENDALL Freedman ASSESSMENT assessment with Non-stress Test completed on 01/19/2025 at 34 weeks gestation for indication offetal tachycardia heart baseline: 150 bpm Variability: Moderate Decelerations: present x1 variable vs baseline change Accelerations: present Contractions: Present rare NST start time: 1331 NST stop time: 1415 NST strip reviewed, interpreted, and approved by OB provider, KENDALL Freedman . NST strip stored in clinic storage file documented in this encounter Plan of Treatment Upcoming Encounters Date Type Department Care Team (Late st Contact Info) Description 02/02/2025 3:00 PM EDT Office Visit Gynecology/Obstetrics [facility] [address] [place] [address] Samuel Feliz MD [address] [place] [address] 02/07/2025 1:30 PM EDT Office Visit Gynecology/Obstetrics [facility] [address] [place] [address] Mariah Del Cid CRNP [address] [place] [address] 03/02/2025 10:30 AM EDT [facility] [address] [place] [address] Zoraida Vanessa CRNP [address] [place] [address] Health Maintenance Due Date Last Done Comments [...] puerperium, unspecified as to episode of care High-risk in third trimester- Primary Multigravida of advanced maternal age in third trimester Maternal asthma complicating Other current maternal conditions classifiable elsewhere, complicating , childbirth, or the puerperium, unspecified as to episode of care H/O section Other postprocedural status History of depression, currently with other poor obstetric history Antepartum anemia complicating Anemia, antepartum Breech presentation, single or unspecified fetus documented in this encounter Additional Health Concerns Active Problems Noted Date Diagnosed Date OB Reminders 11/04/2024 documented as of this encounter Care Teams Room Service Associate Relationship Specialty Start Date End Date Erika Cuevas DO [address] [place] [address] PCP - General Family Medicine 05/29/23 documented as of this encounter
--- OUTSIDE RECORDS SUMMARY | 2025-02-18 15:34 | External Medical Summary ---
Author Name Unknown Address Unknown Organization [facility] [address] [place] [address] Laboratory Report Ordering Provider Test Date Status BARRERA TERESA 02/18/2025 10:57:08 Final Observation Date Value Abnormality Reference (Units ) Status Premature Rupture Membrane risk 02/18/2025 10:57:08 Positive Abnormal Negative Final Performing Location [facility] [address] [place] [address]
[2025-02-18] MEDS: KETOROLAC 30 MG/ML VIAL IV SCH (15:41)
[2025-02-18] MEDS: OXYTOCIN 20 UNITS/LR 1,002 ML IV SCH (15:42)
[2025-02-18] MEDS: LACTATED RINGER'S 1,000 ML IV SCH (15:42)
--- NOTE | 2025-02-18 15:59 | Anesthesiology Progress Note ---
Date of Service February 18, 2025 Anesthesia Post Procedure Vital Signs Vital Signs: Temp Pulse Resp BP Pulse Ox 02/18/25 15:54 20 02/18/25 15:54 81 99 02/18/25 15:53 72 103/57 L 02/18/25 15:49 72 100 02/18/25 15:46 74 95/54 L 02/18/25 15:44 72 99 02/18/25 15:39 81 99 02/18/25 15:34 76 99 02/18/25 15:33 74 02/18/25 15:33 89/49 L 02/18/25 15:33 72 84/50 L 02/18/25 15:30 16 02/18/25 15:29 78 100 02/18/25 15:24 77 86/49 L 100 02/18/25 15:20 36.4 C L 16 02/18/25 15:19 78 99 02/18/25 15:17 71 92/52 L 02/18/25 15:14 69 99 02/18/25 15:13 75 80/51 L 02/18/25 14:00 18 02/18/25 14:00 18 02/18/25 13:55 86 100 02/18/25 13:50 77 100 02/18/25 13:47 88 92 02/18/25 13:45 84 100 02/18/25 13:40 77 100 02/18/25 13:35 81 100 02/18/25 13:30 72 100 02/18/25 13:25 80 100 02/18/25 13:20 84 100 02/18/25 13:15 82 100 02/18/25 13:10 83 100 02/18/25 13:09 82 90 02/18/25 13:05 76 100 02/18/25 13:00 80 100 02/18/25 12:55 75 100 02/18/25 12:50 100 02/18/25 12:50 73 02/18/25 12:50 77 118/77 02/18/25 12:49 18 02/18/25 12:45 81 99 02/18/25 12:43 201 H 83 L 02/18/25 12:04 194 H 81 L Pain Intensity Abdomen: Pain Intensity: 0 Transfer of Care Handoff Completed per policy Notes Mental Status: alert / awake / arousable and participated in evaluation Patient Amnestic to Procedure: Yes Nausea / Vomiting: adequately controlled Pain: adequately controlled Airway Patency, RR, SpO2: stable & adequate BP & HR: stable & adequate Hydration State: stable & adequate Neuraxial Anesthesia: was administered and sensory block is resolving Anesthetic Complications: no major complications apparent and Pt Satisfied with anesthetic care
--- NOTE | 2025-02-18 17:38 | Anesthesiology Progress Note ---
Date of Service February 18, 2025 Anesthesia Post Procedure Vital Signs Vital Signs: Temp Pulse Resp BP Pulse Ox 02/18/25 17:34 90 100 02/18/25 17:29 80 100 02/18/25 17:25 69 101/61 02/18/25 17:24 69 100 02/18/25 17:19 70 100 02/18/25 17:14 72 100 02/18/25 17:09 68 100 02/18/25 17:04 66 100 02/18/25 16:59 69 100 02/18/25 16:55 67 119/56 L 02/18/25 16:54 76 100 02/18/25 16:49 73 100 02/18/25 16:44 75 100 02/18/25 16:39 78 100 02/18/25 16:36 36.6 C 20 02/18/25 16:34 76 100 02/18/25 16:29 71 100 02/18/25 16:24 74 117/84 100 02/18/25 16:20 36.6 C 20 02/18/25 16:19 74 99 02/18/25 16:14 99 02/18/25 16:14 69 02/18/25 16:14 134 H 130/68 02/18/25 16:10 20 02/18/25 16:09 69 99 02/18/25 16:04 100 02/18/25 16:04 72 02/18/25 16:04 71 95/54 L 02/18/25 16:00 20 02/18/25 15:59 76 99 02/18/25 15:54 20 02/18/25 15:54 81 99 02/18/25 15:53 72 103/57 L 02/18/25 15:49 72 100 02/18/25 15:46 74 95/54 L 02/18/25 15:44 72 99 02/18/25 15:40 16 02/18/25 15:39 81 99 02/18/25 15:34 76 99 02/18/25 15:33 74 02/18/25 15:33 89/49 L 02/18/25 15:33 72 84/50 L 02/18/25 15:30 16 02/18/25 15:29 78 100 02/18/25 15:24 77 86/49 L 100 02/18/25 15:20 36.4 C L 16 02/18/25 15:19 78 99 02/18/25 15:17 71 92/52 L 02/18/25 15:14 69 99 02/18/25 15:13 75 80/51 L 02/18/25 14:00 18 02/18/25 14:00 18 02/18/25 13:55 86 100 02/18/25 13:50 77 100 02/18/25 13:47 88 92 02/18/25 13:45 84 100 02/18/25 13:40 77 100 02/18/25 13:35 81 100 02/18/25 13:30 72 100 02/18/25 13:25 80 100 02/18/25 13:20 84 100 02/18/25 13:15 82 100 02/18/25 13:10 83 100 02/18/25 13:09 82 90 02/18/25 13:05 76 100 02/18/25 13:00 80 100 02/18/25 12:55 75 100 02/18/25 12:50 100 02/18/25 12:50 73 02/18/25 12:50 77 118/77 02/18/25 12:49 18 02/18/25 12:45 81 99 02/18/25 12:43 201 H 83 L 02/18/25 12:04 194 H 81 L Pain Intensity Abdomen: Pain Intensity: 0 Transfer of Care Handoff Completed per policy Notes Mental Status: alert / awake / arousable and participated in evaluation Patient Amnestic to Procedure: Yes Nausea / Vomiting: adequately controlled Pain: adequately controlled Airway Patency, RR, SpO2: stable & adequate BP & HR: stable & adequate Hydration State: stable & adequate Anesthetic Complications: no major complications apparent and Pt Satisfied with anesthetic care
[2025-02-18] MEDS: SIMETHICONE 80 MG CHEW PO SCH (18:22)
[2025-02-18] MEDS: DOCUSATE SODIUM 100 MG CAP PO SCH (20:40)
[2025-02-18] MEDS: ACETAMINOPHEN 325 MG TAB PO SCH (20:40)
[2025-02-19 08:02] LABS: Basophils # (auto) 0.02 K/uL (0.00-0.20); Basophils % (auto) 0.1 %; Echinocytes 1+; Eosinophils # (auto) 0.03 K/uL (0.00-0.50); Eosinophils % (auto) 0.2 %; Hematocrit (blood only) 33.3 % (37.0-47.0); Hemoglobin 10.5 g/dl (12.0-16.0); Immature Granulocytes # (auto) 0.06 K/uL (0.01-0.20); Immature Granulocytes % (auto) 0.4 %; Lymphocytes # (auto) 2.33 K/uL (1.20-3.40); Lymphocytes % (auto) 16.4 %; Mean Corpuscular Hemoglobin 23.5 pg (25.0-34.0); Mean Corpuscular Hgb Conc 31.5 g/dL (32.0-36.0); Mean Corpuscular Volume 74.5 fL (80.0-100.0); Mean Platelet Volume 11.6 fL (9.4-12.4); Monocytes # (auto) 1.31 K/uL (0.11-0.59); Monocytes % (auto) 9.2 %; Neutrophils # (auto) 10.42 K/uL (1.40-6.50); Neutrophils % (auto) 73.7 %; Platelet Count 159 K/uL (130-400); Polychromasia 1+; RDW Coefficient of Variation 15.3 % (11.5-14.5); RDW Standard Deviation 41.1 fL (36.4-46.3); Red Blood Count 4.47 M/uL (4.20-5.40); White Blood Count 14.17 K/ul (4.8-10.8)
[2025-02-19] MEDS: PRENATAL VITAMIN 1 TAB PO SCH (09:13)
[2025-02-19] MEDS: SERTRALINE HCL 100 MG TABLET PO SCH (09:14)
--- NOTE | 2025-02-19 10:05 | Obstetrical Progress Note ---
Date of Service February 19, 2025 Subjective Ambulation: ambulating normally Voiding: no voiding problems Passing Gas:: Yes Diet Tolerance:: regular diet Lochia:: Small Feeding Type:: breast feeding Current Pain Level(1-10): 0 doing well Physical Exam Constitutional WD/WN, vitals as above Gastrointestinal (Abdomen) Inspection/Auscultation: abdomen normal to inspection incisio c/d/i abdomen is soft. fundus firm below U. Musculoskeletal Extremities: extremities normal to inspection Skin no rashes, warm and dry Neurologic patellar DTR's 2+ bilat, sensation intact Psychiatric A+Ox3, euthymic affect Results & Data Vital Signs (Past 12 Hours) Vital Signs Temp Pulse Resp BP Pulse Ox O2 Del Method 02/19/25 09:12 18 100 02/19/25 08:19 16 99 02/19/25 07:25 18 99 02/19/25 06:00 18 97 02/19/25 05:00 18 100 02/19/25 04:00 18 98 02/19/25 03:50 36.6 C 78 18 111/69 98 Room Air 02/19/25 03:00 18 97 02/19/25 02:00 18 97 02/19/25 01:00 18 99 02/19/25 00:25 36.8 C 78 18 111/68 100 Room Air 02/19/25 00:00 18 100 02/18/25 23:00 18 100 Laboratory Results Laboratory Results - last 72 hr 02/18/25 02/19/25 13:18 07:16 WBC 5.65 14.17 H RBC 4.53 4.47 Hgb 10.8 L 10.5 L Hct 33.6 L 33.3 L MCV 74.2 L 74.5 L MCH 23.8 L 23.5 L MCHC 32.1 31.5 L RDW Std Deviation 41.1 41.1 RDW Coeff of Michelle 15.5 H 15.3 H Plt Count 150 159 MPV 11.4 11.6 Immature Gran % (Auto) 0.4 Neut % (Auto) 73.7 Lymph % (Auto) 16.4 [place] % (Auto) 9.2 Eos % (Auto) 0.2 Baso % (Auto) 0.1 Neut # (Auto) 10.42 H Lymph # (Auto) 2.33 [place] # (Auto) 1.31 H Eos # (Auto) 0.03 Baso # (Auto) 0.02 Immature Gran # (Auto) 0.06 Polychromasia 1+ Echinocytes 1+ Treponema pallidum Ab Negative Blood Type A Positive Antibody Screen NEGATIVE
[2025-02-19] MEDS ORDERED: KETOROLAC 30 MG/ML VIAL IV PRN (15:04)
[2025-02-19] MEDS: IBUPROFEN 600 MG TAB PO SCH (16:00)
[2025-02-19] MEDS: FERROUS SULFATE 325 MG TAB PO SCH (16:14)
[2025-02-19] MEDS: bisacodyL 5 MG TABEC PO SCH (21:26)
[2025-02-20 03:29] VITALS: PULSE 80; TEMP 98.4; O2SAT 97
[2025-02-20 07:15] LABS: Hematocrit (blood only) 28.1 % (37.0-47.0)
[2025-02-20 09:11] VITALS: BP 123/76; RESP 16
--- NOTE | 2025-02-20 09:12 | Obstetrical Progress Note ---
Date of Service February 20, 2025 Subjective Ambulation: ambulating normally Voiding: no voiding problems Passing Gas:: Yes Diet Tolerance:: regular diet Lochia:: Small Feeding Type:: breast feeding Current Pain Level(1-10): 0 doing well. wants to go home. Physical Exam Constitutional WD/WN, vitals as above Gastrointestinal (Abdomen) Inspection/Auscultation: abdomen normal to inspection incisio c/d/i Musculoskeletal Extremities: extremities normal to inspection Neurologic patellar DTR's 2+ bilat, sensation intact Results & Data Vital Signs (Past 12 Hours) Vital Signs Temp Pulse Resp BP Pulse Ox O2 Del Method 02/20/25 03:28 36.9 C 80 18 110/71 97 Room Air Laboratory Results Laboratory Results - last 72 hr 02/18/25 02/19/25 02/20/25 13:18 07:16 06:54 WBC 5.65 14.17 H RBC 4.53 4.47 Hgb 10.8 L 10.5 L 9.0 L Hct 33.6 L 33.3 L 28.1 L MCV 74.2 L 74.5 L MCH 23.8 L 23.5 L MCHC 32.1 31.5 L RDW Std Deviation 41.1 41.1 RDW Coeff of Michelle 15.5 H 15.3 H Plt Count 150 159 MPV 11.4 11.6 Immature Gran % (Auto) 0.4 Neut % (Auto) 73.7 Lymph % (Auto) 16.4 [place] % (Auto) 9.2 Eos % (Auto) 0.2 Baso % (Auto) 0.1 Neut # (Auto) 10.42 H Lymph # (Auto) 2.33 [place] # (Auto) 1.31 H Eos # (Auto) 0.03 Baso # (Auto) 0.02 Immature Gran # (Auto) 0.06 Polychromasia 1+ Echinocytes 1+ Treponema pallidum Ab Negative Blood Type A Positive Antibody Screen NEGATIVE
[2025-02-20] MEDS ORDERED: bisacodyL 10 MG SUPP PR PRN (15:04)
[2025-02-20] MEDS ORDERED: IBUPROFEN 600 MG TAB PO PRN (15:04)
[2025-02-20] MEDS ORDERED: ACETAMINOPHEN 325 MG TAB PO PRN (21:04)
== END 2025-02-20 13:15 | disposition home or self-care (01) | DRG 788 ==
LOC: 4S1 11:53 → 4E2 17:55